=== PATIENT | male | born 1980 | race Caucasian/White ===

== ENCOUNTER → 2017-03-28 | Outpatient (CLI) | payer OTHER ==
[2017-03-28 08:18] LABS: Basophils % (A) 0 %; CH 28.3; Eosinophils # (A) 0.1 k/uL (0-0.7); Eosinophils % (A) 2 %; HCT 43.8 % (39.0-53.0); HDW 2.58; HGB 14.2 gm/dL (13.0-17.5); Luc # (Auto) 0.17; Luc % (Auto) 3; Lymphocytes # (A) 2.3 k/uL (1.0-4.8); Lymphocytes % (A) 38 %; MCH 27.8 pg (25.0-35.0); MCHC 32.4 g/dL (31.0-37.0); Mean Platelet Volume 7.7; Monocytes # (A) 0.5 k/uL (0-1.0); Monocytes % (A) 8 %; Neutrophils % (A) 49 %; RBC 5.09 m/uL (4.30-5.90); RDW 15.2 % (11.5-15.5); WBC (Perox) 5.75
[2017-03-28 10:47] LABS: ALT 48 U/L (21-72); AST 22 U/L (17-59); Alkaline Phosphatase 72 U/L (38-126); Anion Gap 13 mmol/L; Blood Urea Nitrogen 15 mg/dL (9-20); Calcium 9.4 mg/dL (8.4-10.2); Carbon Dioxide 25 mmol/L (22-30); Chloride 105 mmol/L (98-107); Cholesterol 147 mg/dL (<200); Glucose 103 mg/dL (74-99); HDL Cholesterol 29 mg/dL (40-60); Non-African American GFR(MDRD) >60 (>60 ml/min/1.73 sqM); Potassium 4.4 mmol/L (3.5-5.1); Sodium 143 mmol/L (137-145); Total Bilirubin 0.7 mg/dL (0.2-1.3); Total Protein 7.4 g/dL (6.3-8.2)
[2017-03-28 11:18] LABS: Prostate Specific Antigen 0.25 ng/mL (0.00-4.00)
== END | disposition home or self-care (01) ==
LOC: LABWHC1 07:37
PROVIDERS: ATTEND Nurse Practitioner Adult Health
DX: E66.01 Morbid (severe) obesity due to excess calories (principal); E29.1 Testicular hypofunction; E11.9 Type 2 diabetes mellitus without complications
CPT/HCPCS: 36415; 80053; 80061; 84153; 84402; 84403; 84443; 85025

== ENCOUNTER 2023-06-30 20:46 | Observation (INO) | payer OTHER ==
[2023-06-30] MEDS ORDERED: SODIUM CHLORIDE 0.9% 1,000 ML IV STA (21:06)
--- NOTE | 2023-06-30 21:06 | ED ---
Dizziness HPI - General Chief Complaint: Dizziness Stated Complaint: Syncope, Heart Palpitations Time Seen by Provider: 06/30/23 21:06 Source: patient, RN notes reviewed, old records reviewed Mode of arrival: ambulatory Limitations: no limitations - History of Present Illness Initial Comments: This is a 42-year-old male presented with dizziness. Dizziness lightheadedness. Patient states she was on his bed went into his home on the forefoot dizzy lig htheaded and may have been passed out is concerned patient was passed out. MD Complaint: dizziness, lightheadedness -: hour(s) Timing: gradual onset Severity: severe Improves With: nothing Worsens With: nothing Associated Symptoms: denies other symptoms - Related Data Home Medications Medication Instructions Recorded Confirmed Anastrozole [Arimidex] 1 mg PO MOWEFR 06/30/23 06/30/23 Aspirin EC [Ecotrin Low Dose] 81 mg PO DAILY 06/30/23 06/30/23 Furosemide [Lasix] 20 mg PO DAILY 06/30/23 06/30/23 Ibuprofen [Motrin Ib] 400 mg PO DAILY 06/30/23 06/30/23 Omeprazole 40 mg PO DAILY 06/30/23 06/30/23 Semaglutide [Ozempic] 1 mg SQ TU 06/30/23 06/30/23 Allergies Allergy/AdvReac Type Severity Reaction Status Date / Time No Known Allergies Allergy Verified 06/30/23 22:27 Review of Systems ROS Statement: Those systems with pertinent positive or pertinent negative responses have been documented in the HPI. ROS Other: All systems not noted in ROS Statement are negative. Past Medical History Past Medical History: No Reported History History of Any Multi-Drug Resistant Organisms: None Reported Past Surgical History: No Surgical Hx Reported Past Psychological History: No Psychological Hx Reported Smoking Status: Never smoker Past Alcohol Use History: None Reported Past Drug Use History: None Reported General Exam Limitations: no limitations General appearance: alert, in no apparent distress, anxious Head exam: Present: atraumatic, normocephalic, normal inspection Eye exam: Present: normal appearance, PERRL, EOMI. Absent: scleral icterus, conjunctival injection, periorbital swelling ENT exam: Present: normal exam, mucous membranes moist Neck exam: Present: normal inspection. Absent: tenderness, meningismus, lymphadenopathy Respiratory exam: Present: normal lung sounds bilaterally. Absent: respiratory distress, wheezes, rales, rhonchi, stridor Cardiovascular Exam: Present: tachycardia, irregular rhythm, normal heart sounds. Absent: systolic murmur, diastolic murmur, rubs, gallop, clicks GI/Abdominal exam: Present: soft, normal bowel sounds. Absent: distended, tenderness, guarding, rebound, rigid Extremities exam: Present: normal inspection, full ROM, normal capillary refill. Absent: tenderness, pedal edema, joint swelling, calf tenderness Back exam: Present: normal inspection Neurological exam: Present: alert, oriented X3, CN II-XII intact Psychiatric exam: Present: normal affect, normal mood Skin exam: Present: warm, dry, intact, normal color. Absent: rash Course Vital Signs 06/30/23 06/30/23 06/30/23 20:49 22:21 23:00 Temperature 98.1 F Pulse Rate 59 L 140 H 138 H Respiratory 18 16 16 Rate Blood Pressure 130/85 117/89 113/99 O2 Sat by Pulse 99 97 99 Oximetry 07/01/23 07/01/23 07/01/23 00:11 01:30 02:00 Temperature Pulse Rate 124 H 103 H 108 H Respiratory 16 16 16 Rate Blood Pressure 105/70 118/49 118/49 O2 Sat by Pulse 99 Oximetry 07/01/23 07/01/23 07/01/23 03:00 04:00 06:00 Temperature Pulse Rate 110 H 107 H 68 Respiratory 18 14 16 Rate Blood Pressure 111/80 104/80 101/85 O2 Sat by Pulse 96 Oximetry 07/01/23 07/01/23 07/01/23 07:34 09:05 10:23 Temperature 97.6 F 97.8 F Pulse Rate 73 69 Respiratory 17 17 Rate Blood Pressure 123/78 135/86 O2 Sat by Pulse 96 98 98 Oximetry 07/01/23 07/01/23 07/01/23 13:05 14:12 14:54 Temperature 98.0 F 98.0 F Pulse Rate 68 77 Respiratory 17 18 Rate Blood Pressure 120/76 114/77 O2 Sat by Pulse 99 96 Oximetry - Reevaluation(s) Reevaluation #1: 06/30/23 21:31 Medical records reviewed Reevaluation #2: 06/30/23 22:20 Patient heart rate is improving Reevaluation #3: 06/30/23 22:20 Patient informed results questions answered Reevaluation #4: 06/30/23 21:30 Was pt. sent in by a medical professional or institution (BARBARA Rosa, BRICK SIDING APPLICATOR, urgent care, hospital, or [facility]...) When possible be specific @ -no Did you speak to anyone other than the patient for history (EMS, parent, family, police, friend...)? What history was obtained from this source @ -no Did you review nursing and triage notes (agree or disagree)? Why? @ -agree Are old charts reviewed (outside hosp., previous admission, EMS record, old EKG, old radiological studies, urgent care reports/EKG's, [facility] records)? Report findings @ -yes Differential Diagnosis (chest pain, altered mental status, abdominal pain women, abdominal pain men, vaginal bleeding, weakness, fever, dyspnea, syncope, headache, dizziness, GI bleed, back pain, seizure, CVA, palpatations, mental health, musculoskeletal)? @ -prior EKG interpreted by me (3pts min.). @ -yes X-rays interpreted by me (1pt min.). @ -no CT interpreted by me (1pt min.). @ -no U/S interpreted by me (1pt. min.). @ -no What testing was considered but not performed or refused? (CT, X-rays, U/S, labs)? Why? @ -none What meds were considered but not given or refused? Why? @ -none Did you discuss the management of the patient with other professionals (professionals i.e. BARBARA Rosa, BRICK SIDING APPLICATOR, lab, RT, psych nurse, rn social services, director payment, teacher, small business banking officer, caseworker protective services)? Give summary @ -no Was smoking cessation discussed for >3mins.? @ -no Was critical care preformed (if so, how long)? @ -yes31 Were there social determinants of health that impacted care today? How? (Homel essness, low income, unemployed, alcoholism, drug addiction, transportation, low edu. Level, literacy, decrease access to med. care, [facility], rehab)? @ -none Was there de-escalation of care discussed even if they declined (Discuss DNR or withdrawal of care, Hospice)? DNR status @ -no What co-morbidities impacted this encounter? (DM, HTN, Smoking, COPD, CAD, Cancer, CVA, ARF, Chemo, Hep., AIDS, mental health diagnosis, sleep apnea, morbid obesity)? @ -none Was patient admitted / discharged? Hospital course, mention meds given and route, prescriptions, significant lab abnormalities, going to OR and other pertinent info. @ - 42 male to the emergency department after syncopal event patient is found to be nature fibrillation with RVR with now rate control. Patient will be admitted for cardiology to see regarding new onset of atrial fibrillation and a syncopal event Admitted Undiagnosed new problem with uncertain prognosis? @ -no Drug Therapy requiring intensive monitoring for toxicity (Heparin, Nitro, Insulin, Cardizem)? @ -no Were any procedures done? @ -no Diagnosis/symptom? @ -A. fib with RVR, new syncope Acute, or Chronic, or Acute on Chronic? @ -Acute Uncomplicated (without systemic symptoms) or Complicated (systemic symptoms)? @ -Complicated Side effects of treatment? @ -no Exacerbation, Progression, or Severe Exacerbation? @ -exacerbation Poses a threat to life or bodily function? How? (Chest pain, [place], [place], pneumonia, PE, COPD, DKA, ARF, appy, cholecystitis, CVA, Diverticulitis, Homicidal, Suicidal, threat to staff... and all critical care pts) @ -yes with arrhythmia and syncope Reevaluation #5: 06/30/23 21:30 Differential Dizziness: Benign paroxysmal positional Vertigo, Menieres disease, otitis media, acoustic neuroma, vertebrobasilar insufficiency, cerebellar stroke, encephalitis, hypovolemic, arrhythmia, coronary artery syndrome, anemia, this is not meant to be an all-inclusive list - Consultations Consultation #1: Spoke with sound who agrees to admit this patient EKG Findings - EKG Comments: EKG Findings:: EKG is A. fib with RVR 159 QRS 91 QTC 374 - EKG Results: EKG: interpreted by ERMD Medical Decision Making - Medical Decision Making 42 male to the emergency department after syncopal event patient is found to be nature fibrillation with RVR with now rate control. Patient will be admitted for cardiology to see regarding new onset of atrial fibrillation and a syncopal event - Lab Data Result diagrams: 07/01/23 03:31 07/01/23 03:31 Lab Results 06/30/23 06/30/23 06/30/23 Range/Units 21:25 21:25 21:25 WBC 9.3 (3.8-10.6) k/uL RBC 5.92 H (4.30-5.90) m/uL Hgb 16.5 (13.0-17.5) gm/dL Hct 48.6 (39.0-53.0) % MCV 82.0 (80.0-100.0) fL MCH 27.9 (25.0-35.0) pg MCHC 34.0 (31.0-37.0) g/dL RDW 14.6 (11.5-15.5) % Plt Count 176 (150-450) k/uL MPV 7.9 Neutrophils % 53 % Lymphocytes % 36 % Monocytes % 7 % Eosinophils % 1 % Basophils % 0 % Neutrophils # 5.0 (1.3-7.7) k/uL Lymphocytes # 3.4 (1.0-4.8) k/uL Monocytes # 0.7 (0-1.0) k/uL Eosinophils # 0.1 (0-0.7) k/uL Basophils # 0.0 (0-0.2) k/uL PT 10.5 (10.0-12.5) sec INR 0.9 (<1.2) APTT 27.2 (22.0-30.0) sec Sodium 141 (137-145) mmol/L Potassium 4.0 (3.5-5.1) mmol/L Chloride 102 (98-107) mmol/L Carbon Dioxide 24 (22-30) mmol/L Anion Gap 15 mmol/L BUN 18 (9-20) mg/dL Creatinine 0.87 (0.66-1.25) mg/dL Est GFR (CKD-EPI)AfAm >90 (>60 ml/min/1.73 sqM) Est GFR (CKD-EPI)NonAf >90 (>60 ml/min/1.73 sqM) Glucose 112 H (74-99) mg/dL Plasma Lactic Acid Franky (0.7-2.0) mmol/L Calcium 9.7 (8.4-10.2) mg/dL Phosphorus 4.8 H (2.5-4.5) mg/dL Magnesium 2.0 (1.6-2.3) mg/dL Total Bilirubin 0.8 (0.2-1.3) mg/dL AST 36 (17-59) U/L ALT 36 (4-49) U/L Alkaline Phosphatase 75 (38-126) U/L Troponin I (0.000-0.034) ng/mL NT-Pro-B Natriuret Pep <20 pg/mL Total Protein 8.3 H (6.3-8.2) g/dL Albumin 4.7 (3.5-5.0) g/dL TSH 3.860 (0.465-4.680) mIU/L Serum Alcohol <10 mg/dL 06/30/23 06/30/23 Range/Units 21:25 21:25 WBC (3.8-10.6) k/uL RBC (4.30-5.90) m/uL Hgb (13.0-17.5) gm/dL Hct (39.0-53.0) % MCV (80.0-100.0) fL MCH (25.0-35.0) pg MCHC (31.0-37.0) g/dL RDW (11.5-15.5) % Plt Count (150-450) k/uL MPV Neutrophils % % Lymphocytes % % Monocytes % % Eosinophils % % Basophils % % Neutrophils # (1.3-7.7) k/uL Lymphocytes # (1.0-4.8) k/uL Monocytes # (0-1.0) k/uL Eosinophils # (0-0.7) k/uL Basophils # (0-0.2) k/uL PT (10.0-12.5) sec INR (<1.2) APTT (22.0-30.0) sec Sodium (137-145) mmol/L Potassium (3.5-5.1) mmol/L Chloride (98-107) mmol/L Carbon Dioxide (22-30) mmol/L Anion Gap mmol/L BUN (9-20) mg/dL Creatinine (0.66-1.25) mg/dL Est GFR (CKD-EPI)AfAm (>60 ml/min/1.73 sqM) Est GFR (CKD-EPI)NonAf (>60 ml/min/1.73 sqM) Glucose (74-99) mg/dL Plasma Lactic Acid Franky 0.9 (0.7-2.0) mmol/L Calcium (8.4-10.2) mg/dL Phosphorus (2.5-4.5) mg/dL Magnesium (1.6-2.3) mg/dL Total Bilirubin (0.2-1.3) mg/dL AST (17-59) U/L ALT (4-49) U/L Alkaline Phosphatase (38-126) U/L Troponin I <0.012 (0.000-0.034) ng/mL NT-Pro-B Natriuret Pep pg/mL Total Protein (6.3-8.2) g/dL Albumin (3.5-5.0) g/dL TSH (0.465-4.680) mIU/L Serum Alcohol mg/dL - EKG Data -: EKG Interpreted by Me Critical Care Time Critical Care Time: Yes Total Critical Care Time: 31 Disposition Clinical Impression: Atrial fibrillation with RVR, Syncope Disposition: ADMITTED IP TO THIS HOSP Condition: Fair Is patient prescribed a controlled substance at d/c from ED?: No Time of Disposition: 22:20
[2023-06-30 21:47] LABS: Basophils % (A) 0 %; Eosinophils # (A) 0.1 k/uL (0-0.7); Eosinophils % (A) 1 %; HCT 48.6 % (39.0-53.0); HGB 16.5 gm/dL (13.0-17.5); Lymphocytes # (A) 3.4 k/uL (1.0-4.8); Lymphocytes % (A) 36 %; MCH 27.9 pg (25.0-35.0); Mean Platelet Volume 7.9; Monocytes # (A) 0.7 k/uL (0-1.0); Monocytes % (A) 7 %; Neutrophils % (A) 53 %; Platelet Count 176 k/uL (150-450); RBC 5.92 m/uL (4.30-5.90); RDW 14.6 % (11.5-15.5); WBC 9.3 k/uL (3.8-10.6)
[2023-06-30 22:14] LABS: ALT 36 U/L (4-49); African American GFR (CKD) >90 (>60 ml/min/1.73 sqM); Albumin 4.7 g/dL (3.5-5.0); Alcohol <10 mg/dL; Anion Gap 15 mmol/L; Blood Urea Nitrogen 18 mg/dL (9-20); Calcium 9.7 mg/dL (8.4-10.2); Carbon Dioxide 24 mmol/L (22-30); Chloride 102 mmol/L (98-107); Glucose 112 mg/dL (74-99); Non-African American GFR(CKD) >90 (>60 ml/min/1.73 sqM); Sodium 141 mmol/L (137-145); Total Bilirubin 0.8 mg/dL (0.2-1.3); Total Protein 8.3 g/dL (6.3-8.2)
[2023-06-30] MEDS ORDERED: MORPHINE SULFATE 4 MG/ML SYRINGE IV PRN (22:17)
[2023-06-30] MEDS ORDERED: NALOXONE 0.4 MG/ML 1 ML VIAL IV PRN (22:17)
[2023-06-30] MEDS ORDERED: HEPARIN SODIUM 1,000 UN/ML (10ML VL) IV PRN (22:19)
[2023-06-30] MEDS ORDERED: HEPARIN SODIUM 1,000 UN/ML (10ML VL) IV ONE (22:19)
[2023-06-30 22:22] LABS: NT-Pro-B-Type Natriuretic Pept <20 pg/mL
[2023-06-30 22:27] LABS: AST 36 U/L (17-59); Alkaline Phosphatase 75 U/L (38-126); Phosphorus 4.8 mg/dL (2.5-4.5)
[2023-06-30] MEDS ORDERED: HEPARIN SOD,PORK IN 0.45% NACL 25,000 UNIT in 0.45% NACL 1 250ML.BAG IV SCH (22:30)
[2023-06-30 22:45] LABS: INR 0.9 (<1.2); Partial Thromboplastin Time 27.2 sec (22.0-30.0); Prothrombin Time 10.5 sec (10.0-12.5)
[2023-06-30] MEDS: SODIUM CHLORIDE 0.9% 1,000 ML IV SCH (22:50)
[2023-06-30] MEDS ORDERED: DILTIAZEM DRIP BOLUS FROM BAG 1 MG SOLN IV ONE (23:42)
[2023-06-30] MEDS ORDERED: DILTIAZEM 125 MG in SODIUM CHLORIDE 0.9% 100 ML IV SCH (23:45)
[2023-07-01 04:09] LABS: Basophils % (A) 1 %; Eosinophils # (A) 0.1 k/uL (0-0.7); Eosinophils % (A) 1 %; HCT 47.3 % (39.0-53.0); HGB 15.5 gm/dL (13.0-17.5); Lymphocytes # (A) 2.6 k/uL (1.0-4.8); Lymphocytes % (A) 35 %; MCHC 32.7 g/dL (31.0-37.0); MCV 82.5 fL (80.0-100.0); Mean Platelet Volume 8.3; Monocytes # (A) 0.5 k/uL (0-1.0); Monocytes % (A) 7 %; Neutrophils # (A) 3.9 k/uL (1.3-7.7); Neutrophils % (A) 54 %; Platelet Count 186 k/uL (150-450); RBC 5.74 m/uL (4.30-5.90); RDW 14.6 % (11.5-15.5); WBC 7.3 k/uL (3.8-10.6)
[2023-07-01 04:18] LABS: ALT 30 U/L (4-49); AST 27 U/L (17-59); African American GFR (CKD) >90 (>60 ml/min/1.73 sqM); Albumin 3.9 g/dL (3.5-5.0); Alkaline Phosphatase 69 U/L (38-126); Anion Gap 9 mmol/L; Blood Urea Nitrogen 18 mg/dL (9-20); Carbon Dioxide 25 mmol/L (22-30); Chloride 105 mmol/L (98-107); Glucose 109 mg/dL (74-99); Non-African American GFR(CKD) >90 (>60 ml/min/1.73 sqM); Potassium 4.3 mmol/L (3.5-5.1); Sodium 139 mmol/L (137-145); Total Bilirubin 0.8 mg/dL (0.2-1.3)
[2023-07-01] MEDS ORDERED: DEXTROSE 50% SYRINGE 50 ML IVP PRN ×2 (04:42)
--- NOTE | 2023-07-01 04:47 | P.HPIM ---
History of Present Illness H&P Date: 06/30/23 Chief Complaint: Syncope 42-year-old male with history of diabetes mellitus Patient was at his baseline status of health, he woke up to answer his phone today and next thing he knows waking up on the side of the bed his reports that he went unresponsive she has to yell his name twice a responded to the second time when he woke up he felt some chest tightness with palpitations and went to the bathroom try to rest but he's becoming profusely sweaty with heavy breathing for which she decided to come into the hospital for evaluation. Denies any recent illness denies any fevers O's are upper respiratory infection symptoms denies any history of cardiac disease denies any chest pain or trouble breathing the past denies any exertional dyspnea. Patient had a stress test done about a year ago was negative Patient not on any blood thinner denies any head injury Patient denies tobacco smoking illicit drugs or heavy alcohol In the ED patient was found to be in A. fib with RVR was initiated on Cardizem and heparin drip review of systems Pertinent positives as noted in HPI. All other systems were reviewed and are negative on exam Constitutional: No acute distress, conversant, pleasant Eyes: Anicteric sclerae, moist conjunctiva, Pupils equal round reactive to light ENMT: NC/AT Oropharynx clear, no erythema, or exudates Neck: Supple, no masses, or JVD No carotid bruits No thyromegaly Lungs: Clear to auscultation Clear to percussion Normal respiratory effort, no accessory muscle use Cardiovascular: Heart irregular in rate and rhythm, No murmurs, gallops, or rubs No peripheral edema Abdominal: Soft Nontender, no guarding, rebound or rigidity Abdomen moving with respiration Normoactive bowel sounds No hepatomegaly, No splenomegaly No palpable mass No abdominal wall hernia noted Extremities: No digital cyanosis No clubbing Pedal pulses intact and symmetrical Radial pulses intact and symmetrical No calf tenderness Psychiatric: Alert and oriented to person, place and time Appropriate affect fair judgement Neuro Muscles Strength 5/5 in all 4 extremities Sensation to light touch grossly present throughout Cranial nerves II-XII grossly intact Lymphatics: no palpable cervical or supraclavicular lymph nodes Past Medical History Past Medical History: No Reported History History of Any Multi-Drug Resistant Organisms: None Reported Past Surgical History: No Surgical Hx Reported Past Psychological History: No Psychological Hx Reported Smoking Status: Never smoker Past Alcohol Use History: None Reported Past Drug Use History: None Reported Medications and Allergies Home Medications Medication Instructions Recorded Confirmed Type Anastrozole [Arimidex] 1 mg PO MOWEFR 06/30/23 06/30/23 History Aspirin EC [Ecotrin Low Dose] 81 mg PO DAILY 06/30/23 06/30/23 History Furosemide [Lasix] 20 mg PO DAILY 06/30/23 06/30/23 History Ibuprofen [Motrin Ib] 400 mg PO DAILY 06/30/23 06/30/23 History Omeprazole 40 mg PO DAILY 06/30/23 06/30/23 History Semaglutide [Ozempic] 1 mg SQ TU 06/30/23 06/30/23 History Allergies Allergy/AdvReac Type Severity Reaction Status Date / Time No Known Allergies Allergy Verified 06/30/23 22:27 Physical Exam Vitals: Vital Signs Temp Pulse Resp BP Pulse Ox 07/01/23 00:11 124 H 16 105/70 99 06/30/23 23:00 138 H 16 113/99 99 06/30/23 22:21 140 H 16 117/89 97 06/30/23 20:49 98.1 F 59 L 18 130/85 99 Intake and Output 06/30/23 06/30/23 07/01/23 14:59 22:59 06:59 Other: Weight 145.15 kg Results CBC & Chem 7: 07/01/23 03:31 07/01/23 03:31 Labs: Abnormal Lab Results - Last 24 Hours (Table) 06/30/23 06/30/23 Range/Units 21:25 21:25 RBC 5.92 H (4.30-5.90) m/uL Glucose 112 H (74-99) mg/dL Phosphorus 4.8 H (2.5-4.5) mg/dL Total Protein 8.3 H (6.3-8.2) g/dL Assessment and Plan Assessment: 42-year-old male with diabetes mellitus coming in for palpitations and profuse sweating I discussed case with the ED doctor said to the admission for new onset A. fib with RVR with anticipated length of stay more than 2 midnights New-onset A. fib with RVR Cardiology consult Troponins negative Cardizem drip Heparin drip Check echocardiogram TSH unremarkable 3.8 Electrolytes unremarkable sodium 141 potassium 4 Bun18 creatinine 0.8 Hemoglobin 16 white count 9 Diabetes mellitus Insulin sliding scale Full code DVT prophylax is currently on heparin drip for A. fib
[2023-07-01] MEDS: SODIUM CHLORIDE 0.9% 1,000 ML IV SCH ×2 (06:22→11:43)
[2023-07-01 07:04] LABS: Glucose,Whole Blood 97 mg/dL (70-110)
[2023-07-01] MEDS: INSULIN ASPART (NovoLOG) 100 UNIT/ML VIAL SQ SCH ×2 (07:12→11:40)
[2023-07-01] MEDS ORDERED: PANTOPRAZOLE 40 MG TABLET PO SCH (07:30)
[2023-07-01] MEDS ORDERED: ASPIRIN 81 MG PO SCH (09:00)
--- NOTE | 2023-07-01 10:45 | CA ---
Transthoracic Echo Report Name: Michael Land Age: 42 Gender: M : 1980 Exam Date: 07/01/2023 08:15 Exam Location: [place] [facility] Ht (in): 68 Wt (lb): 220 Ordering Physician: Mario Garza DO Attending/Referring Phys: [id number], Kayla Mending Carrier Cindy Chanel RDCS Procedure CPT: Indications: syncope,newAfib Cardiac Hx: Technical Quality: Good Contrast 1: Total Dose (mL): Contrast 2: Total Dose (mL): MEASUREMENTS (Male / Female) Normal Values 2D ECHO LV Diastolic Diameter PLAX 5.3 cm 4.2 - 5.9 / 3.9 - 5.3 cm LV Systolic Diameter PLAX 3.4 cm IVS Diastolic Thickness 1.3 cm 0.6 - 1.0 / 0.6 - 0.9 cm LVPW Diastolic Thickness 1.4 cm 0.6 - 1.0 / 0.6 - 0.9 cm LV Relative Wall Thickness 0.5 RV Internal Dim ED PLAX 3.7 cm LA Systolic Diameter LX 4.0 cm 3.0 - 4.0 / 2.7 - 3.8 cm LV Diastolic Volume MOD BP 123.4 cm??? 67 - 155 / 56 - 104 cm??? LV Systolic Volume MOD BP 53.4 cm??? 22 - 58 / 19 - 49 cm??? LV Ejection Fraction MOD BP 56.7 % >= 55 % LV Cardiac Index MOD BP 2204.6 cm???/min???m??? LV Diastolic Volume MOD 4C 100.4 cm??? LV Systolic Volume MOD 4C 42.6 cm??? LV Ejection Fraction MOD 4C 57.6 % LV Cardiac Index MOD 4C 1821.1 cm???/min???m??? LV Diastolic Length 4C 8.2 cm LV Systolic Length 4C 6.8 cm LV Diastolic Volume MOD 2C 143.2 cm??? LV Systolic Volume MOD 2C 66.5 cm??? LV Ejection Fraction MOD 2C 53.5 % LV Cardiac Index MOD 2C 2413.9 cm???/min???m??? LV Diastolic Length 2C 8.8 cm LV Systolic Length 2C 6.8 cm LA Volume 73.7 cm??? 18 - 58 / 22 - 52 cm??? LA Volume Index 33.2 cm???/m??? 16 - 28 cm???/m??? M-MODE Aortic Root Diameter MM 3.4 cm MV E Point Septal Separation 0.3 cm AV Cusp Separation MM 2.7 cm DOPPLER AV Peak Velocity 147.4 cm/s AV Peak Gradient 8.7 mmHg MV Area PHT 4.3 cm??? Mitral E Point Velocity 85.6 cm/s Mitral A Point Velocity 63.2 cm/s Mitral E to A Ratio 1.4 MV Deceleration Time 178.1 ms MV E' Velocity 9.9 cm/s Mitral E to MV E' Ratio 8.6 TR Peak Velocity 210.6 cm/s TR Peak Gradient 17.7 mmHg Right Ventricular Systolic Press 22.4 mmHg FINDINGS Left Ventricle Left ventricular ejection fraction is estimated at 55-60 %. Left ventricular cavity size normal. Mild concentric left ventricular hypertrophy. Right Ventricle Mild right ventricular dilatation. Right ventricular systolic pressure within normal limits. Right Atrium Normal right atrial size. Left Atrium Mildly increased left atrial volume. Mitral Valve Structurally normal mitral valve. No mitral stenosis, regurgitation or prolapse. Aortic Valve Trileaflet aortic valve. No aortic valve stenosis or regurgitation. Tricuspid Valve Tricuspid valve not well visualized. Trace to mild tricuspid regurgitation. Pulmonic Valve Structurally normal pulmonic valve. No pulmonic regurgitation. Pericardium No pericardial effusion. Aorta Normal size aortic root and proximal ascending aorta. CONCLUSIONS Normal LV size and systolic function. No significant abnormality on the Doppler exam. No pericardial effusion no pulmonary hypertension mild right ventricular enlargement Previewed by: Dr. Meliza Chairez MD (Electronically Signed) Final Date: 01 July 2023 10:44
[2023-07-01 11:41] LABS: Glucose,Whole Blood 86 mg/dL (70-110)
--- NOTE | 2023-07-01 11:45 | P.CRDCN ---
History of Present Illness History of present illness: HISTORY OF PRESENT ILLNESS: This is a 42-year-old male with a past medical history significant for insulin resistance and morbid obesity. 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 We have been asked to see the patient in consultation for new onset A. fib. Patient examined at the bedside in the emergency room. Patient states yesterday in the middle of the night he hurt his phone go off so he got up to get it. He states that he passed out on the floor. He states he remembers that his was yelling his name. He reports feeling diaphoretic at that time. He states he got up and went to lay down in bed and began to have palpitations. The patient was found to be in A. fib with RVR. The patient denies a history of atrial fibrillation. He was started on IV Cardizem and IV heparin. He has since converted to sinus mechanism and is maintaining sinus mechanism at the time of examination. The patient is a nonsmoker. He denies alcohol use. * EKG reveals A. fib with RVR * Laboratory data: TSH 3.860. * Current home cardiac medications include Lasix 20 mg daily * Echocardiogram obtained revealing normal LV size and systolic function. Trace to mild tricuspid regurgitation. REVIEW OF SYSTEMS: At the time of my exam: CONSTITUTIONAL: Denies fever or chills. HEENT: Denies blurred vision, vision changes, or eye pain. Denies hemoptysis CARDIOVASCULAR: Denies chest pain. Denies orthopnea. Denies PND. Denies palpitations RESPIRATORY: Denies shortness of breath. GASTROINTESTINAL: Denies abdominal pain. Denies nausea or vomiting. HEMATOLOGIC: Denies bleeding disorders. GENITOURINARY: Denies any blood in urine. SKIN: Denies pruitis. Denies rash. PHYSICAL EXAM: VITAL SIGNS: Reviewed. GENERAL: Well-developed in no acute distress. HEENT: Head is normocephalic. Pupils are equal, round. Sclerae anicteric. Mucous membranes of the mouth are moist. Neck supple. No JVD or thyromegaly LUNGS: Respirations even and unlabored. Lungs essentially clear to auscultation bilaterally. HEART: Regular rate and rhythm. S1 and S2 heard. ABDOMEN: Soft. Nondistended. Nontender. EXTREMITIES: Normal range of motion. No clubbing or cyanosis. Peripheral pulses intact. No lower extremity edema NEUROLOGIC: Awake and alert. Oriented x 3. ASSESSMENT: Syncope New-onset paroxysmal atrial fibrillation with RVR History of insulin resistance Morbid obesity PLAN: 2-D echo obtained and reviewed TSH within normal limits Discontinue IV heparin and IV Cardizem Anticoagulation not indicated at this time secondary to CHADSVASC score Patient is stable for discharge home today from a cardiac standpoint He is to follow up in office in 2 weeks. Nurse practitioner note has been reviewed by physician. Signing provider agrees with the documented findings, assessment, and plan of care. Past Medical History Past Medical History: No Reported History History of Any Multi-Drug Resistant Organisms: None Reported Past Surgical History: No Surgical Hx Reported Past Psychological History: No Psychological Hx Reported Smoking Status: Never smoker Past Alcohol Use History: None Reported Past Drug Use History: None Reported Medications and Allergies Home Medications Medication Instructions Recorded Confirmed Type Anastrozole [Arimidex] 1 mg PO MOWEFR 06/30/23 06/30/23 History Aspirin EC [Ecotrin Low Dose] 81 mg PO DAILY 06/30/23 06/30/23 History Furosemide [Lasix] 20 mg PO DAILY 06/30/23 06/30/23 History Ibuprofen [Motrin Ib] 400 mg PO DAILY 06/30/23 06/30/23 History Omeprazole 40 mg PO DAILY 06/30/23 06/30/23 History Semaglutide [Ozempic] 1 mg SQ TU 06/30/23 06/30/23 History Allergies Allergy/AdvReac Type Severity Reaction Status Date / Time No Known Allergies Allergy Verified 06/30/23 22:27 Physical Exam Vitals: Vital Signs Temp Pulse Resp BP Pulse Ox 07/01/23 07:34 97.6 F 73 17 123/78 96 07/01/23 06:00 68 16 101/85 96 07/01/23 04:00 107 H 14 104/80 07/01/23 03:00 110 H 18 111/80 07/01/23 02:00 108 H 16 118/49 07/01/23 01:30 103 H 16 118/49 07/01/23 00:11 124 H 16 105/70 99 06/30/23 23:00 138 H 16 113/99 99 06/30/23 22:21 140 H 16 117/89 97 06/30/23 20:49 98.1 F 59 L 18 130/85 99 Intake and Output 06/30/23 07/01/23 07/01/23 22:59 06:59 14:59 Intake Total 20.917 Balance 20.917 Intake: Intake, IV Titration 20.917 Amount Diltiazem 125 mg In 20.917 Sodium Chloride 0.9% 100 ml @ Per Protocol IV .Q0M [facility] Rx#:[id number] Other: Weight 145.15 kg Results 07/01/23 03:31 07/01/23 03:31 Cardiac Enzymes 06/30/23 06/30/23 07/01/23 Range/Units 21:25 21:25 00:54 AST 36 (17-59) U/L Troponin I <0.012 0.020 (0.000-0.034) ng/mL 07/01/23 07/01/23 Range/Units 03:31 03:31 AST 27 (17-59) U/L Troponin I 0.017 (0.000-0.034) ng/mL Coagulation 06/30/23 07/01/23 Range/Units 21:25 03:31 PT 10.5 (10.0-12.5) sec APTT 27.2 29.5 (22.0-30.0) sec CBC 06/30/23 07/01/23 Range/Units 21:25 03:31 WBC 9.3 7.3 (3.8-10.6) k/uL RBC 5.92 H 5.74 (4.30-5.90) m/uL Hgb 16.5 15.5 (13.0-17.5) gm/dL Hct 48.6 47.3 (39.0-53.0) % Plt Count 176 186 (150-450) k/uL Comprehensive Metabolic Panel 06/30/23 07/01/23 Range/Units 21:25 03:31 Sodium 141 139 (137-145) mmol/L Potassium 4.0 4.3 (3.5-5.1) mmol/L Chloride 102 105 (98-107) mmol/L Carbon Dioxide 24 25 (22-30) mmol/L BUN 18 18 (9-20) mg/dL Creatinine 0.87 0.81 (0.66-1.25) mg/dL Glucose 112 H 109 H (74-99) mg/dL Calcium 9.7 9.0 (8.4-10.2) mg/dL AST 36 27 (17-59) U/L ALT 36 30 (4-49) U/L Alkaline Phosphatase 75 69 (38-126) U/L Total Protein 8.3 H 7.0 (6.3-8.2) g/dL Albumin 4.7 3.9 (3.5-5.0) g/dL Current Medications Generic Name Dose Route Start Last Admin Trade Name Freq PRN Reason Stop Dose Admin Aspirin 81 mg 07/01/23 09:00 Aspirin 81 Mg PO DAILY [facility] Dextrose/Water 25 ml 07/01/23 04:42 Dextrose 50% Syringe 50 Ml IVP PER PROTOCOL PRN Hypoglycemia Protocol Dextrose/Water 50 ml 07/01/23 04:42 Dextrose 50% Syringe 50 Ml IVP PER PROTOCOL PRN Hypoglycemia Protocol Heparin Sodium (Porcine) 0 unit 06/30/23 22:19 Heparin Sodium 1,000 Un/Ml (10ml Vl) IV PER PROTOCOL PRN Low PTT Protocol Sodium Chloride 1,000 mls @ 130 mls/hr 06/30/23 22:30 07/01/23 06:22 Saline 0.9% IV Not Given .Q7H42M [facility] Heparin Sodium/Sodium Chloride 250 mls @ 10 mls/hr 06/30/23 22:30 06/30/23 22:46 25,000 unit/ Sodium Chloride IV 6.8894 units/kg/hr .Q24H [facility] 10 mls/hr Administration Protocol 6.8894 UNITS/KG/HR Diltiazem HCl 125 mg/ Sodium 125 mls @ 0 mls/hr 06/30/23 23:45 07/01/23 04:12 Chloride IV 10 mg/hr .Q0M [facility] 10 mls/hr Titration Protocol Per Protocol Insulin Aspart 0 unit 07/01/23 07:30 07/01/23 07:12 Insulin Aspart (Novolog) 100 Unit/Ml Vial SQ Not Given ACHS [facility] Protocol Morphine Sulfate 4 mg 06/30/23 22:17 Morphine Sulfate 4 Mg/Ml Syringe IV Q4HR PRN Severe Pain (Scale 7 to 10) Naloxone HCl 0.2 mg 06/30/23 22:17 Naloxone 0.4 Mg/Ml 1 Ml Vial IV Q2M PRN Opioid Reversal Pantoprazole Sodium 40 mg 07/01/23 07:30 07/01/23 07:29 Pantoprazole 40 Mg Tablet PO 40 mg [id number] [facility] Administration Intake and Output 06/30/23 07/01/23 07/01/23 22:59 06:59 14:59 Intake Total 20.917 Balance 20.917 Intake: Intake, IV Titration 20.917 Amount Diltiazem 125 mg In 20.917 Sodium Chloride 0.9% 100 ml @ Per Protocol IV .Q0M [facility] Rx#:[id number] Other: Weight 145.15 kg 07/01/23 03:31 07/01/23 03:31
[2023-07-01 13:21] VITALS: TEMP 98
[2023-07-01 14:16] VITALS: BP 114/77; PULSE 77; RESP 18
--- NOTE | 2023-07-01 14:32 | P.DS ---
Providers Date of admission: 06/30/23 22:17 Attending physician: Dori Borges MD Consults: 06/30/23 22:17 Consult Physician Routine Consulting Provider: Nilay Marques Consult Reason/Comments: [email or web address],syncope Do you want consulting provider notified?: Yes Primary care physician: Krishan Cutler [facility] Course: Discharge Diagnosis: Syncope New-onset A. fib with RVR Diabetes mellitus Hospital Course: 42-year-old male with a past medical history diabetes mellitus presented to the ED with a syncopal episode. Patient denied any postictal confusion, urinary incontinence or tongue soreness. When patient regained consciousness he was diaphoretic and had chest tightness and palpitations. In the ED patient was in A. fib with RVR. He was started on Cardizem drip and heparin drip. Patient's converted to normal sinus rhythm. His echocardiogram was unremarkable. Patient seen by cardiology and deemed stable for discharge. Per cardiology no need to start anticoagulation. Patient surgery following cardiology in 2 weeks. Patient seen and examined at bedside on 07/01/2023.[] Vital signs reviewed and stable. General: [non toxic], [no distress], [appears at stated age] Derm: [warm], [dry] Head: [atraumatic], [normocephalic], [symmetric] Eyes: [EOMI], [no lid lag], [anicteric sclera] Mouth: [no lip lesion], [mucus membranes moist] Cardiovascular: [S1S2 reg], [no murmur], [positive posterior tibial pulse bilateral], Lungs: [CTA bilateral], [no rhonchi, no rales] , [no accessory muscle use] Abdominal: [soft], [ nontender to palpation], [no guarding], [no appreciable organomegaly] Ext: [no gross muscle atrophy], [no edema], [no contractures] Neuro: [ CN II-XI grossly intact], [no focal neuro deficits] Psych: [Alert], [oriented], [appropriate affect] A total of [33] minutes of time were spent preparing this complex discharge summary . Patient Condition at Discharge: Fair Plan - Discharge Summary New Discharge Prescriptions: Continue Ibuprofen [Motrin Ib] 400 mg PO DAILY Furosemide [Lasix] 20 mg PO DAILY Aspirin EC [Ecotrin Low Dose] 81 mg PO DAILY Anastrozole [Arimidex] 1 mg PO MOWEFR Semaglutide [Ozempic] 1 mg SQ TU Omeprazole 40 mg PO DAILY Discharge Medication List Anastrozole [Arimidex] 1 mg PO MOWEFR 06/30/23 [History] Aspirin EC [Ecotrin Low Dose] 81 mg PO DAILY 06/30/23 [History] Furosemide [Lasix] 20 mg PO DAILY 06/30/23 [History] Ibuprofen [Motrin Ib] 400 mg PO DAILY 06/30/23 [History] Omeprazole 40 mg PO DAILY 06/30/23 [History] Semaglutide [Ozempic] 1 mg SQ TU 06/30/23 [History] Follow up Appointment(s)/Referral(s): Shilo Spaulding MD [STAFF PHYSICIAN] - 2 Weeks Krishan Wood MD [Primary Care Provider] - 1-2 days
[2023-07-01 16:23] LABS: Chol/HDL Ratio 4.65 Ratio; LDL Cholesterol,Calculated 93.3 mg/dL (0.0-131.0)
== END 2023-07-01 14:55 | disposition home or self-care (01) ==
LOC: EC 20:46 → 3SCARD 22:17 → INTOOBSV 22:17 → 3SCARD 07-01 14:32
PROVIDERS: ADMIT Internal Medicine; ATTEND Internal Medicine
DX: I48.0 Paroxysmal atrial fibrillation (principal); E11.9 Type 2 diabetes mellitus without complications; R61 Generalized hyperhidrosis; E88.819 Insulin resistance, unspecified; E66.01 Morbid (severe) obesity due to excess calories; Z68.42 Body mass index [BMI] 45.0-49.9, adult; Z79.82 Long term (current) use of aspirin; Z79.899 Other long term (current) drug therapy; Z79.85 Long-term (current) use of injectable non-insulin antidiabetic drugs; Z79.1 Long term (current) use of non-steroidal anti-inflammatories (NSAID)
CPT/HCPCS: 96366; 96368; 96376; 96361; 96365; 99291; 36415; 94760; 93005 ×2; 93306; 85379; 83880; 80061; 80053 ×2; 83605; 83735 ×2; 84100 ×2; 84443; 84484 ×2; 85025 ×2; 85610; 85730 ×2; 80320; G0378; J1644 ×2